=== PATIENT | male | born 1940 | race Caucasian/White ===

== ENCOUNTER 2021-08-01 10:51 | Emergency (ER) | payer MEDICARE, OTHER ==
[~2021-08-01] VITALS: Ht 165.1 cm; Wt 74.8 kg
--- NOTE | 2021-08-01 11:00 | NUR ---
BIB [facility] C/O PERSISTENT COUGH AND TESTED +COVID 19 X 2 DAYS. AAOX4, NOT IN RESPIRATORY DISTRESS. ON MONITOR. VS STABLE. POX 98% ON RA.
[2021-08-01] MEDS ORDERED: TRIA80OI TP (11:05)
[2021-08-01] MEDS ORDERED: HYDR-4077 PO (11:05)
[2021-08-01] MEDS ORDERED: OMEP20CA15 PO (11:05)
[2021-08-01] MEDS ORDERED: MAGN400O6 PO (11:05)
[2021-08-01] MEDS ORDERED: INSU100V7 SQ (11:05)
[2021-08-01] MEDS ORDERED: METO25TA20 PO (11:05)
[2021-08-01] MEDS ORDERED: OMEG1CAP40 PO (11:05)
[2021-08-01] MEDS ORDERED: METF-440 PO (11:05)
[2021-08-01] MEDS ORDERED: LISI40TA13 PO (11:05)
[2021-08-01] MEDS ORDERED: AMLO-212 PO (11:05)
[2021-08-01] MEDS ORDERED: ASPI-1420 PO (11:05)
[2021-08-01] MEDS ORDERED: POLY15DR40 EACHEYE (11:05)
[2021-08-01] MEDS ORDERED: HYDR25TA4 PO (11:05)
[2021-08-01] MEDS ORDERED: CLON0.1T PO (11:05)
[2021-08-01] MEDS ORDERED: CYCL30DR EACHEYE (11:05)
[2021-08-01] MEDS ORDERED: SENN-261 PO (11:05)
[2021-08-01] MEDS ORDERED: ACET-2605 PO (12:38)
[2021-08-01] MEDS ORDERED: ALBU18HF2 INH (12:38)
--- NOTE | 2021-08-01 12:40 | NUR ---
CALLED [facility] [phone] WILL ACCEPT PATIENT BACK.
--- NOTE | 2021-08-01 12:43 | NUR ---
CALLED [facility] FOR TRANSPORT DROP OFF CREW [employer] RISSA TORREZ.
--- NOTE | 2021-08-01 12:45 | NUR ---
Patient discharged to facility in stable condition. Written and verbal after care instructions given. Patient verbalizes understanding of instruction.
[2021-08-01 12:47] VITALS: BP 146/66
== END 2021-08-01 12:48 ==
LOC: ER 11:01
DX: U07.1 COVID-19 (principal); R05.9 Cough, unspecified; I10 Essential (primary) hypertension; E11.9 Type 2 diabetes mellitus without complications; Z79.899 Other long term (current) drug therapy; Z79.82 Long term (current) use of aspirin; Z79.84 Long term (current) use of oral hypoglycemic drugs; Z79.4 Long term (current) use of insulin

== ENCOUNTER 2024-08-04 11:31 | Inpatient (IN) | payer MEDICARE, OTHER ==
[~2024-08-04] VITALS: Ht 160 cm; Wt 74.8 kg
[~2024-08-04 11:31] MED LIST: ACET-2605 PO; ALBU18HF2 INH; AMLO-212 PO; ASPI-1420 PO; CLON0.1T PO; CYCL30DR EACHEYE; HYDR-4077 PO; HYDR25TA4 PO; INSU100V7 SQ; LISI40TA13 PO; MAGN400O6 PO; METF-440 PO; METO25TA20 PO; OMEG1CAP40 PO; OMEP20CA15 PO; POLY15DR40 EACHEYE; SENN-261 PO; TRIA80OI TP
[2024-08-04] MEDS: methylPREDNISolone SOD SUCC 125 MG/2ML VIAL IV ONE (12:30)
[2024-08-04] MEDS ORDERED: CEFTRIAXONE 1GM BAG (ER ONLY) 50 ML IV ONE (12:30)
[2024-08-04] MEDS ORDERED: methylPREDNISolone SOD SUCC 125 MG/2ML VIAL ONE (12:31)
[2024-08-04 12:34] LABS: BASOPHILS # (AUTO) 0.1 K/uL (0.0-0.2); BASOPHILS % (AUTO) 1.2 % (0.0-2.0); EOSINOPHILS # (AUTO) 0.3 K/uL (0.0-0.7); EOSINOPHILS % (AUTO) 3.1 % (0.0-6.0); HEMATOCRIT 35 % (39-51); LYMPHOCYTES # (AUTO) 1.3 K/uL (0.8-4.8); LYMPHOCYTES % (AUTO) 14.2 % (20.0-44.0); MEAN CORPUSCULAR HEMOGLOBIN 36 PG (26.0-33.0); MEAN CORPUSCULAR HGB CONC 34 g/dl (31.0-36.0); MEAN CORPUSCULAR VOLUME 104 fL (80-96); MONOCYTES # (AUTO) 0.9 K/uL (0.1-1.30); MONOCYTES % (AUTO) 9.7 % (2.0-12.0); NEUTROPHILS # (AUTO) 6.6 K/uL (1.8-8.9); NEUTROPHILS % (AUTO) 71.8 % (43.0-81.0); PLATELET COUNT (AUTO) 235 K/uL (150-450); RED BLOOD CELL COUNT(AUTO) 3.37 MIL/uL (4.5-6.0); RED CELL DISTRIBUTION WIDTH 15.6 % (11.5-15.0); WHITE BLOOD COUNT (AUTO) 9.1 K/uL (4.3-11.0)
[2024-08-04] MEDS: CEFTRIAXONE 1GM BAG (ER ONLY) 50 ML IV ONE (12:36)
[2024-08-04 12:47] LABS: PARTIAL THROMBOPLASTIN TIME 35.5 SEC (24.3-34.3); PROTHROMBIN TIME 10.6 SECS (9.2-11.1)
[2024-08-04] MEDS ORDERED: ALBUTEROL FS 2.5 MG/3 ML VIAL.NEB ONE (12:58)
[2024-08-04] MEDS ORDERED: IPRATROPIUM NEB FS 0.5 MG/2.5 ML AMPUL.NEB ONE (12:59)
[2024-08-04 13:06] LABS: ALANINE AMINOTRANSFERASE 50 U/L (12-78); ALBUMIN 3.2 g/dL (3.4-5.0); ALKALINE PHOSPHATASE 264 U/L (46-116); ASPARTATE AMINOTRANSFERASE 37 U/L (15-37); BILIRUBIN,DIRECT 0.4 mg/dL (0.0-0.2); BILIRUBIN,TOTAL 0.7 mg/dL (0.2-1.0); CALCIUM, SERUM 8.7 mg/dL (8.5-10.1); CARBON DIOXIDE 23 mmol/L (21-32); CHLORIDE 102 mmol/L (98-107); CREATININE 1.7 mg/dL (0.6-1.3); GLUCOSE 129 mg/dL (74-106); POTASSIUM 4.5 mmol/L (3.5-5.1); SODIUM SERUM 138 mmol/L (136-145); TOTAL PROTEIN, SERUM 6.9 g/dL (6.4-8.2); UREA NITROGEN, BLOOD 37 mg/dL (7-18)
[2024-08-04] MEDS: AZITHROMYCIN 500 MG in IV D5W 250 ML IV ONE (13:06)
[2024-08-04 13:08] LABS: LACTIC ACID 2.4 mmol/L (0.4-2.0)
[2024-08-04] MEDS: ALBUTEROL FS 2.5 MG/3 ML VIAL.NEB CONTNEB ONE (13:09)
[2024-08-04 13:10] VITALS: O2SAT 95
[2024-08-04] MEDS: IPRATROPIUM NEB FS 0.5 MG/2.5 ML AMPUL.NEB NEB ONE (13:10)
[2024-08-04] MEDS ORDERED: BLOO-668 IN (13:21)
[2024-08-04] MEDS ORDERED: HYDR-3642 PO (13:21)
[2024-08-04] MEDS ORDERED: ALBU18HF2 IH (13:21)
[2024-08-04] MEDS ORDERED: ACET-2030 PO ×2 (13:21)
[2024-08-04] MEDS ORDERED: ALLO100T PO (13:21)
[2024-08-04] MEDS ORDERED: FERR325T28 PO (13:21)
[2024-08-04] MEDS ORDERED: METO5TAB7 PO (13:21)
[2024-08-04] MEDS ORDERED: LATA7.5D EACHEYE (13:21)
[2024-08-04] MEDS ORDERED: LEVO5TAB13 PO (13:21)
[2024-08-04] MEDS ORDERED: KETO200T15 PO (13:21)
[2024-08-04] MEDS ORDERED: COLC0.6C3 PO (13:21)
[2024-08-04] MEDS ORDERED: NYST500P2 TP (13:21)
[2024-08-04 14:10] VITALS: O2SAT 95
[2024-08-04] MEDS ORDERED: MAG HYDROX/AL HYDROX/SIMETH 30 ML UDC PO PRN (15:00)
[2024-08-04] MEDS ORDERED: Z GUARD REMEDY 4 OZ OINT TP PRN (15:00)
[2024-08-04] MEDS ORDERED: ONDANSETRON HCL/PF 4 MG/2 ML VIAL IVP PRN (15:00)
[2024-08-04] MEDS ORDERED: CLONIDINE HCL 0.1 MG TABLET PO PRN (15:00)
[2024-08-04] MEDS ORDERED: MAGNESIUM HYDROXIDE 30 ML UDC PO PRN (15:00)
[2024-08-04] MEDS ORDERED: IV NS 0.9% 1,000 ML IV SCH (15:00)
[2024-08-04] MEDS ORDERED: ACETAMINOPHEN 325 MG TABLET PO PRN (15:00)
[2024-08-04] MEDS ORDERED: DEXTROSE 50%-WATER 50 ML DISP.SYRIN IV PRN (15:30)
[2024-08-04] MEDS: LISINOPRIL (20MG) 20 MG TABLET PO SCH (17:00)
[2024-08-04] MEDS ORDERED: IV NS 0.9% 1,000 ML BAG IV ONE (17:00)
[2024-08-04] MEDS: hydrALAZINE HCL 50 MG TABLET PO SCH (17:00)
[2024-08-04] MEDS: AMLODIPINE BESYLATE 5 MG TABLET PO SCH (17:00)
[2024-08-04] MEDS ORDERED: ALBUTEROL FS 2.5 MG/0.5 ML VIAL.NEB IH PRN (19:30)
[2024-08-04 20:00] VITALS: BP 129/63; TEMP 98.4; O2SAT 97
[2024-08-04 21:08] VITALS: BP 129/63; TEMP 98.4; O2SAT 97
[2024-08-04] MEDS: methylPREDNISolone SOD SUCC 40 MG/ML VIAL IV SCH (21:29)
[2024-08-04] MEDS: SENNOSIDES 8.6 MG TABLET PO SCH (21:29)
[2024-08-04] MEDS: ACETAMINOPHEN ES 500 MG TABLET PO SCH (21:30)
[2024-08-04] MEDS: hydrOXYzine 10 MG TABLET PO SCH (21:30)
[2024-08-04] MEDS: FERROUS SULFATE (325 MG) 325 MG/TAB TABLET PO SCH (21:30)
[2024-08-04] MEDS: ENOXAPARIN SODIUM 30 MG/0.3 ML DISP.SYRIN SQ SCH (21:31)
[2024-08-04] MEDS: METOPROLOL TARTRATE 25 MG TABLET PO SCH (22:11)
[2024-08-04] MEDS: *INSULIN REGULAR(HUMULIN R)HUM 100 UNIT/ML VIAL SQ PRN (22:58)
[2024-08-04] MEDS: BLOOD SUGAR DIAGNOSTIC 1 EACH STRIP VI SCH (22:59)
[2024-08-04] MEDS: IV NS 0.9% 1,000 ML IV PRN (23:50)
[2024-08-05] VITALS (9 sets, daily range): BP systolic 66–134; BP diastolic 45–64; TEMP 97.5–98.6; O2SAT 89–100
[2024-08-05] MEDS: ALBUTEROL FS 2.5 MG/0.5 ML VIAL.NEB IH PRN (00:06)
[2024-08-05] MEDS ORDERED: METOLAZONE 2.5 MG TABLET PO SCH (00:30)
[2024-08-05] MEDS: methylPREDNISolone SOD SUCC 40 MG/ML VIAL IV SCH (05:42)
[2024-08-05] MEDS: INSULIN REGULAR, HUMAN 100 UNIT/ML 3 ML VIAL SQ PRN (06:24)
[2024-08-05 07:47] LABS: BASOPHILS % (AUTO) 0.5 % (0.0-2.0); EOSINOPHILS % (AUTO) 0.5 % (0.0-6.0); HEMATOCRIT 31 % (39-51); HEMOGLOBIN 10.9 g/dL (13.5-17.5); LYMPHOCYTES # (AUTO) 0.7 K/uL (0.8-4.8); LYMPHOCYTES % (AUTO) 9.6 % (20.0-44.0); MEAN CORPUSCULAR HEMOGLOBIN 36 PG (26.0-33.0); MEAN CORPUSCULAR HGB CONC 35 g/dl (31.0-36.0); MEAN CORPUSCULAR VOLUME 103 fL (80-96); MONOCYTES # (AUTO) 0.3 K/uL (0.1-1.30); MONOCYTES % (AUTO) 3.7 % (2.0-12.0); NEUTROPHILS # (AUTO) 6.1 K/uL (1.8-8.9); NEUTROPHILS % (AUTO) 85.7 % (43.0-81.0); PLATELET COUNT (AUTO) 180 K/uL (150-450); RED BLOOD CELL COUNT(AUTO) 3.01 MIL/uL (4.5-6.0); RED CELL DISTRIBUTION WIDTH 15.4 % (11.5-15.0); WHITE BLOOD COUNT (AUTO) 7.1 K/uL (4.3-11.0)
[2024-08-05] MEDS: PANTOPRAZOLE 40 MG TABLET.DR PO SCH (08:26)
[2024-08-05] MEDS: COLCHICINE 0.6 MG TABLET PO SCH (08:26)
[2024-08-05] MEDS: ASPIRIN EC 81 MG TABLET.DR PO SCH (08:28)
[2024-08-05 08:30] LABS: CALCIUM, SERUM 7.9 mg/dL (8.5-10.1); CREATININE 2.5 mg/dL (0.6-1.3); MAGNESIUM 2.1 mg/dL (1.8-2.4); PHOSPHORUS 3.8 mg/dL (2.5-4.9); POTASSIUM 4.2 mmol/L (3.5-5.1)
[2024-08-05] MEDS: ALLOPURINOL 100 MG TABLET PO SCH (08:36)
[2024-08-05] MEDS ORDERED: Medication Not On Formulary EA (Omega-3 Fatty Acids/Fish Oil (Omega 3 1,000 Mg Softgel) PO SCH (09:00)
[2024-08-05] MEDS: CEFTRIAXONE 1 G in IV D5W 50 ML IV SCH (12:21)
[2024-08-06] VITALS (7 sets, daily range): BP systolic 130–142; BP diastolic 57–73; TEMP 97.3–98.1; O2SAT 91–94
[2024-08-06] MEDS ORDERED: AZIT250T13 PO (10:02)
[2024-08-06] MEDS ORDERED: PRED50TA PO (10:02)
== END 2024-08-06 19:15 | disposition home health service (06) | DRG 202 ==
LOC: ER 11:36 → TELE 17:39
PROVIDERS: ADMIT Internal Medicine; ATTEND Internal Medicine
DX: J20.9 Acute bronchitis, unspecified (principal); J96.01 Acute respiratory failure with hypoxia; N17.0 Acute kidney failure with tubular necrosis; E87.20 Acidosis, unspecified; D50.9 Iron deficiency anemia, unspecified; E78.5 Hyperlipidemia, unspecified; N18.9 Chronic kidney disease, unspecified; Z79.84 Long term (current) use of oral hypoglycemic drugs; E11.22 Type 2 diabetes mellitus with diabetic chronic kidney disease; I12.9 Hypertensive chronic kidney disease with stage 1 through stage 4 chronic kidney disease, or unspecified chronic kidney disease; J44.89 Other specified chronic obstructive pulmonary disease; M89.8X9 Other specified disorders of bone, unspecified site; Z20.822 Contact with and (suspected) exposure to COVID-19
CPT/HCPCS: 36415; 71045-TC; 76770-TC; 80048-TC; 80076-TC; 82962-TC; 83605-TC; 83735-TC; 84100-TC; 85025-TC; 85730-TC; 87040-TC; 87081-TC; 94760-TC; 94799-TC; 97110-TC; 97116-TC; 97530-TC; A4223; G0378; J0456; J0696; J1650; J1815; J2919; J7030; J7060; Q0177